=== PATIENT | male | born 1950 | race Caucasian/White ===

== ENCOUNTER 2021-12-14 15:33 | Emergency (ER) | payer MEDICARE ==
--- NOTE | 2021-12-14 16:12 | ERPHSYRPT ---
- History of Present Illness Time Seen by Provider: 12/14/21 16:00 Source: patient, family Exam Limitations: no limitations Patient Subjective Stated Complaint: pt states yesterday evening he was unable to speak to and brother for 15-30 seconds Triage Nursing Assessment: pt states yesterday evening he was unable to speak to and brother for 15-30 seconds - pt able to communicate without difficulty at this time Physician History: This is a 71-year-old white male patient of Dr. Osborne who was visiting his brother yesterday in [place] when he had sudden onset of aphasia that lasted approximately 15 to 20 seconds then resolved completely. Patient took 2 325 mg aspirin at that time and then repeated the dose this morning at the instructions of his physician brother. Patient denies chest pain. He denies headache. He denies shortness of breath. He contacted Dr. Cardoza's office this morning and he was instructed to come to the emergency department as soon as he arrived [facility] the [facility]. Patient has a history of hypertension, elevated cholesterol, gout and gastroesophageal reflux disease. Upon arrival into the emergency department he has a blood pressure of approximately 153/113. He does not have a headache. He has no visual changes. He is completely asymptomatic. Timing/Duration: yesterday, resolved prior to arrival Severity: mild Character of Deficits: unable to speak (Yesterday for approximately 15 to 20 seconds) Deficits: no difficulties Baseline/Normal Cognition: alert oriented x 3 Current Cognition: alert oriented x 3 Baseline Gait: walks w/o assistance Associated Symptoms: denies symptoms Allergies/Adverse Reactions: No Known Drug Allergies Allergy (Unverified 12/14/21 15:53) Home Medications: Allopurinol 100 mg [Zyloprim 100 mg] 100 mg PO DAILY 12/14/21 [History] Amlodipine Besylate 5 mg [Norvasc 5 mg] 2.5 mg PO HS 12/14/21 [History] Aspirin EC 81 mg [Ecotrin 81 mg] 81 mg PO DAILY 12/14/21 [History] Hydrochlorothiazide 25 mg [hydroDIURIL 25 MG] 0.5 tab PO DAILY 12/14/21 [History] Hydroxyzine HCl 25 mg [Atarax 25 mg] 25 mg PO HS 12/14/21 [History] Losartan Potassium 50 mg [Cozaar 50 MG] 50 mg PO BID 12/14/21 [History] Mecobalamin [B12 Active] 500 mcg PO DAILY 12/14/21 [History] Metoprolol Tartrate 50 mg [Lopressor 50 MG] 75 mg PO BID 12/14/21 [History] Omeprazole 20 mg PO HS 12/14/21 [History] Simvastatin 20Mg [Zocor 20Mg] 40 mg PO DAILY 12/14/21 [History] Hx Tetanus, Diphtheria Vaccination/Date Given: Yes Hx Influenza Vaccination/Date Given: Yes Hx Pneumococcal Vaccination/Date Given: Yes Immunizations Up to Date: Yes Travel Risk - International Travel Have you traveled outside of the country in past 3 weeks: No - Coronavirus Screening Are you exhibiting any of the following symptoms?: No Close contact with a COVID-19 positive Pt in past 14-21 Days: No - Vaccine Status Have you recieved a Covid-19 vaccination: Yes [employer]: [employer] - Vaccination Dates Date of 2cond Vaccination (if applicable): 07/2020 Comment: 09/11 - Review of Systems Constitutional: No Symptoms Eyes: No Symptoms Ears, Nose, & Throat: No Symptoms Respiratory: No Symptoms Cardiac: No Symptoms Abdominal/Gastrointestinal: No Symptoms Genitourinary Symptoms: No Symptoms Musculoskeletal: No Symptoms Skin: No Symptoms Neurological: No Symptoms Psychological: No Symptoms Endocrine: No Symptoms Hematologic/Lymphatic: No Symptoms Immunological/Allergic: No Symptoms All Other Systems: Reviewed and Negative - Past Medical History Pertinent Past Medical History: Yes Cardiac History: High Cholesterol, Hypertension GI Medical History: GERD Psycho-Social History: Anxiety - Past Surgical History Past Surgical History: Yes Neuro Surgical History: No Pertinent History Cardiac: No Pertinent History Respiratory: No Pertinent History Gastrointestinal: Hernia Repair Male Surgical History: Prostate Surgery, Vasectomy Other Surgical History: MULTIPLE BACK SURGERIES, NARESH SHOULDER REPAIR, 2 HERNIA REPAIR, HX PROSTATE CANCER- PROSTATE REMOVAL, CARPAL TUNNEL SURGERY, VASECTOMY - Social History Smoking Status: Current every day smoker Exposure to second hand smoke: Yes Drug Use: none Patient Lives Alone: No - Nursing Vital Signs Nursing Vital Signs: Initial Vital Signs Pulse Rate 77 12/14/21 15:42 Respiratory Rate 20 12/14/21 15:42 Blood Pressure 157/113 12/14/21 15:42 O2 Sat by Pulse Oximetry 96 12/14/21 15:42 Pain Scale Pain Intensity 0 - Leonor Coma Scale Best Eye Response (Leonor): (4) open spontaneously Best Verbal Response ([place]): (5) oriented Best Motor Response ([place]): (6) obeys commands Leonor Total: 15 - Physical Exam General Appearance: no apparent distress, alert, anxiety Eye Exam: bilateral eye: normal inspection, PERRL, EOMI Ears, Nose, Throat Exam: normal ENT inspection, moist mucous membranes Neck Exam: normal inspection, non-tender, supple, full range of motion Respiratory: normal breath sounds, lungs clear, airway intact, No chest tenderness, No respiratory distress Cardiovascular: regular rate/rhythm, normal heart sounds, normal peripheral pulses Gastrointestinal: soft, normal bowel sounds, No tenderness Rectal Exam: not done Back Exam: normal inspection, normal range of motion, No CVA tenderness, No vertebral tenderness Extremity Exam: normal inspection, normal range of motion, pelvis stable Mental Status: alert, oriented x 3, cooperative signs cleaner Exam: normal hearing, normal speech, PERRL, tongue midline Coordination/Gait: normal finger to nose, normal gait, normal cerebellar f unction Motor/Sensory: no motor deficit, no sensory deficit, no pronator drift Skin Exam: normal color, warm, dry SpO2 Interpretation: normal SpO2: 96 O2 Delivery: Room Air - Course Nursing assessment & vital signs reviewed: Yes EKG Interpreted by Me: RATE (70), Sinus Rhythm, NORMAL AXIS, NORMAL INTERVALS, NORMAL QRS, NORMAL ST-T, Other (No acute ischemic changes. No comparison EKG available.) Ordered Tests: Active Orders 24 hr Category Date Time Status EKG-ER Only STAT Care 12/14/21 16:12 Active IV Insertion STAT Care 12/14/21 16:12 Active NPO (ED) STAT Care 12/14/21 16:13 Active Consult Neurology ROUTINE Cons 12/14/21 16:34 Completed Tele-Health Consult ROUTINE Cons 12/14/21 22:32 Active HEAD WITHOUT CONTRAST [CT] Stat Exams 12/14/21 16:13 Completed CBC W DIFF Stat Lab 12/14/21 16:00 Completed CMP Stat Lab 12/14/21 16:00 Completed ETHYL ALCOHOL Stat Lab 12/14/21 16:00 Completed Medication Summary Discontinued Medications Generic Name Dose Route Start Last Admin Trade Name Freq PRN Reason Stop Dose Admin Clopidogrel Bisulfate 75 mg 12/14/21 22:37 Clopidogrel Bisulfate 75 Mg Tablet PO 12/14/21 22:38 STAT ONE Lab/Rad Data: Laboratory Result Diagrams 12/14/21 16:00 12/14/21 16:00 Laboratory Results 12/14/21 12/14/21 12/14/21 Range/Units 16:00 16:00 16:00 WBC 5.7 (4.0-10.5) x10^3/uL RBC 4.39 (4.1-5.6) x10^6/uL Hgb 15.0 (12.5-18.0) g/dL Hct 42.8 (42-50) % MCV 97.5 (78-100) fL MCH 34.2 H (26-32) pg MCHC 35.0 (32-36) g/dL RDW 11.8 (11.5-14.0) % Plt Count 208 (150-450) x10^3/uL MPV 9.4 (7.5-11.0) fL Gran % 62.3 (36.0-66.0) % Immature Gran % (Auto) 1.1 H (0.00-0.4) % Nucleat RBC Rel Count 0.0 (0.00-0.1) % Eos # (Auto) 0.17 (0-0.5) x10^3/uL Immature Gran # (Auto) 0.06 H (0.00-0.03) x10^3u/L Absolute Lymphs (auto) 1.23 (1.0-4.6) x10^3/uL Absolute Monos (auto) 0.62 (0.0-1.3) x10^3/uL Absolute Nucleated RBC 0.00 (0.00-0.01) x10^3u/L Lymphocytes % 21.6 L (24.0-44.0) % Monocytes % 10.9 (0.0-12.0) % Eosinophils % 3.0 (0.00-5.0) % Basophils % 1.1 (0.0-0.4) % Absolute Granulocytes 3.56 (1.4-6.9) x10^3/uL Basophils # 0.06 (0-0.4) x10^3/uL Sodium 131 L (137-145) mmol/L Potassium 3.9 (3.5-5.1) mmol/L Chloride 99 (98-107) mmol/L Carbon Dioxide 22 (22-30) mmol/L Anion Gap 13.8 (5-15) MEQ/L BUN 11 (9-20) mg/dL Creatinine 0.75 (0.66-1.25) mg/dL Estimated GFR > 60.0 ML/MIN Glucose 117 H (74-106) mg/dL Calcium 9.5 (8.4-10.2) mg/dL Total Bilirubin 0.80 (0.2-1.3) mg/dL AST 76 H (17-59) U/L ALT 77 H (0-50) U/L Alkaline Phosphatase 66 (38-126) U/L Serum Total Protein 6.9 (6.3-8.2) g/dL Albumin 4.1 (3.5-5.0) g/dL Ethyl Alcohol < 10 (0-10) mg/dL - Progress Progress: improved Progress Note: 12/14/21 16:36 Dr. Cardoza, the patient's primary care provider, requested that we obtain a tele-neurology consultation. 12/14/21 19:08 CT scan of head without contrast shows no acute intracranial abnormalities. 12/14/21 19:38 Medical decision making: We are waiting teleneurology consultation for outpatient recommendations of this patient. This is what Dr. Cardoza is wanting to obtain from the neurologist 12/14/21 22:38 Medical decision making: The patient was evaluated by Dr. Reid, neurologist. After evaluating this patient and the results of the CAT scan of the head, she recommends a standard TIA work-up. I spoke with Dr. Cardoza and the patient. They both have decided the patient will have a work-up as an ou tpatient to include MRI, echocardiogram, bilateral carotid Dopplers and place the patient on Plavix. The neurologist stated that this is okay if the patient does not want to be admitted into the hospital. Dr. Cardoza states that the patient is to call her office tomorrow morning. Her office will make arrangements for each of those tests. She wanted me to place the patient on Plavix 75 mg orally now and then the patient will receive a prescription from Dr. Cardoza for further Plavix medication/prescription. Discussed with : Lee Counseled pt/family regarding: lab results, diagnosis, need for follow-up, rad results - Departure Departure Disposition: Home Clinical Impression: TIA (transient ischemic attack) Condition: Stable Critical Care Time: No Referrals: GABINO OSBORNE, [Primary Care Provider] - Follow up/PCP as directed Additional Instructions: Take all your medications as prescribed. Follow-up with Dr. Cardoza in her office tomorrow morning to make arrangements for outpatient testing and further medications as indicated.
[2021-12-14 16:45] LABS: Absolute Neutrophil Ct (ANC) 3.56 x10^3/uL (1.4-6.9); Basophil (Absolute #) 0.06 x10^3/uL (0-0.4); Eosinophil (Absolute #) 0.17 x10^3/uL (0-0.5); Hematocrit 42.8 % (42-50); Lymphocyte (Absolute #) 1.23 x10^3/uL (1.0-4.6); Lymphocytes % 21.6 % (24.0-44.0); Mean Cell Volume 97.5 fL (78-100); Mean Corpuscular Hemoglobin 34.2 pg (26-32); Mean Platelet Volume 9.4 fL (7.5-11.0); Monocyte (Absolute #) 0.62 x10^3/uL (0.0-1.3); Monocytes % 10.9 % (0.0-12.0); Neutrophil % 62.3 % (36.0-66.0); Platelet Count 208 x10^3/uL (150-450); Red Blood Count 4.39 x10^6/uL (4.1-5.6); Red Cell Distribution Width 11.8 % (11.5-14.0); White Blood Count 5.7 x10^3/uL (4.0-10.5)
[2021-12-14 16:58] LABS: ALBUMIN 4.1 g/dL (3.5-5.0); ALKALINE PHOSPHATASE 66 U/L (38-126); ANION GAP 13.8 MEQ/L (5-15); BLOOD UREA NITROGEN 11 mg/dL (9-20); CHLORIDE 99 mmol/L (98-107); Calcium 9.5 mg/dL (8.4-10.2); Carbon Dioxide 22 mmol/L (22-30); Creatinine 1 0.75 mg/dL (0.66-1.25); EST GLOMERULAR FILTRATION RATE > 60.0 ML/MIN; Glucose 117 mg/dL (74-106); Potassium 3.9 mmol/L (3.5-5.1); SGOT/AST 76 U/L (17-59); SGPT/ALT 77 U/L (0-50); SODIUM 131 mmol/L (137-145); Total Protein 6.9 g/dL (6.3-8.2)
--- NOTE | 2021-12-14 19:29 | XRAY ---
Exam: CT of the head without IV contrast from 12/14/2021. CTDI: 53.92 mGy Comparison: None. Indication: 71-year-old male with possible TIA yesterday; aphasia for about 15 seconds; history of hypertension. Technique: Non-IV contrast axial images were obtained through the brain. Reconstructed coronal and sagittal images were created and reviewed. Findings: The ventricles, sylvian fissures, and cortical sulci are mildly prominent in a symmetric manner suggesting an aging brain/mild atrophy. No acute intracranial bleed or abnormal extra-axial fluid collection is seen. No focal mass effect or midline shift is seen. Subtle subcortical white matter changes are seen, likely due to mild chronic small vessel ischemic white matter disease. A discrete low attenuation infarct within a major cerebral or cerebellar artery distribution is not seen. There is minimal mucosal thickening versus a tiny retention cyst or polyp at the anterior lateral margin of the right maxillary sinus on image #3. No air-fluid levels are seen. I do see some soft tissue density within posterior ethmoid sinus on the right. There is some minimal mucosal thickening at the posterior margin of the sphenoid sinus. Minimal mucosal thickening is seen at the lateral margin of the left ethmoid sinus. I also note minimal mucosal thickening within the inferior aspect of the frontal sinus just to the left of midline. There is some mild deviation of the nasal septum toward the right. The mastoid air cells are clear without effusion. The middle ear cavities appear unremarkable. No fracture or other focal bone lesion of the calvarium is seen. Impression: 1. No acute intracranial bleed or other acute intracranial process is seen. 2. Findings consistent with mild diffuse aging/atrophy of the brain. I also note some subtle subcortical white changes, likely reflecting chronic small vessel ischemic white matter disease. A discrete low attenuation infarct is not seen. 3. Mild chronic sinus disease/sinusitis, as discussed above. No air-fluid levels are seen.
[2021-12-14] MEDS ORDERED: PLAVIX Tablet PO ONE (22:37)
[2021-12-14] MEDS ORDERED: PLAVIX Tablet ONE (22:39)
[2021-12-14 22:57] VITALS: BP 158/109; PULSE 78; O2SAT 95
== END 2021-12-14 22:58 | disposition home or self-care (01) ==
LOC: ED 15:33
DX: G45.9 Transient cerebral ischemic attack, unspecified (principal); R47.01 Aphasia; I10 Essential (primary) hypertension; E78.5 Hyperlipidemia, unspecified; Z72.0 Tobacco use; Z79.899 Other long term (current) drug therapy; Z79.02 Long term (current) use of antithrombotics/antiplatelets
CPT/HCPCS: 36000; 36415; 70450; 80053; 85025; 93005; 93225; 99284; G0480; Q3014; 80307; A9270-GY

== ENCOUNTER 2022-10-05 08:10 | Day surgery (SDC) | payer MEDICARE ==
[~2022-10-05 08:10] MED LIST: Ak-Dilate OPHTHALMIC*** 1.065 ML, Cyclogyl 1% OPHTH SOL 1.065 ML, GATIFLOXACIN 0.5% OPH... OP ONE; BETADINE 5% OPHTHALMIC 30 ML OP ONE; Lactated Ringers 1,000 ML IV SCH; NON-FORMULARY ITEM OP ONE; TETRACAINE 0.5% STERI-UNIT SOL OP ONE; cefUROXime sodium 0.005 GM in Sodium Chloride Flush 30 ML*** 0.5 ML IJ ONE
[2022-10-05] MEDS ORDERED: Lactated Ringers 1,000 ML IV ONE (08:50)
[2022-10-05] MEDS ORDERED: Zofran 4 MG/2 ML VIAL IV PRN (09:00)
[2022-10-05] MEDS ORDERED: ACETAZOLAMIDE 250 MG TABLET PO ONE (09:00)
[2022-10-05] MEDS ORDERED: Versed 2 MG/2 ML Injection ONE (11:45)
[2022-10-05] MEDS ORDERED: DIPRIVAN 200 MG/20 ML IV ONE (11:45)
[2022-10-05] MEDS ORDERED: Xylocaine-Mpf 2% 5 Ml Vial ONE (11:45)
[2022-10-05] MEDS ORDERED: SUBLIMAZE 100 MCG/2 ML ONE (11:45)
[2022-10-05 12:37] VITALS: O2SAT 95
[2022-10-05 12:50] VITALS: BP 130/87; PULSE 65
== END 2022-10-05 13:04 | disposition home or self-care (01) ==
LOC: SDC 08:10
PROVIDERS: ATTEND Ophthalmology
DX: H25.811 Combined forms of age-related cataract, right eye (principal)
CPT/HCPCS: C1780; J2250; J2704; J3010; A9270-GY

== ENCOUNTER 2023-01-12 10:16 | Day surgery (SDC) | payer MEDICARE ==
[2023-01-12] MEDS ORDERED: BUPIVACAINE 0.5% VIAL IJ ONE (10:17)
[2023-01-12] MEDS ORDERED: Depo-Medrol 40 MG/ML IM ONE (10:17)
[2023-01-12] MEDS ORDERED: LIDOCAINE HCL 1% 50 MG/5 ML VL PF IJ ONE (10:17)
--- NOTE | 2023-01-12 17:29 | XRAY ---
Indication: Left knee injection. Intraoperative fluoroscopy provided for 7 seconds. Single digital spot images submitted for interpretation demonstrates needle tip projecting over the left femur intercondylar notch. Small amount of contrast injected for needle tip placement. Correlate with intraoperative findings/report.
--- NOTE | 2023-01-13 08:48 | XRAY ---
7 seconds of fluoroscopy was used in surgery for a left intra-articular knee injection.
== END 2023-01-12 16:55 | disposition home or self-care (01) ==
LOC: SDC-PAIN 10:16
PROVIDERS: ATTEND Psychiatry & Neurology Pain Medicine
DX: M17.12 Unilateral primary osteoarthritis, left knee (principal)
CPT/HCPCS: 20610; 73560; 77002; J1030; J2001; Q9966

== ENCOUNTER 2023-05-10 07:44 | Day surgery (SDC) | payer MEDICARE ==
[2023-05-10] MEDS ORDERED: Epinephrine Preservative Free 1 MG/ML IJ ONE (07:45)
[2023-05-10] MEDS ORDERED: BETADINE 5% OPHTHALMIC 30 ML OP ONE (08:00)
[2023-05-10] MEDS ORDERED: TETRACAINE 0.5% STERI-UNIT SOL OP ONE ×2 (08:00)
[2023-05-10] MEDS ORDERED: Lactated Ringers 1,000 ML IV SCH (08:00)
[2023-05-10] MEDS ORDERED: NON-FORMULARY ITEM OP ONE (08:00)
[2023-05-10] MEDS ORDERED: Ak-Dilate OPHTHALMIC*** 1.065 ML, Cyclogyl 1% OPHTH SOL 1.065 ML, GATIFLOXACIN 0.5% OPH... OP ONE ×4 (08:00)
[2023-05-10] MEDS ORDERED: cefUROXime sodium 0.005 GM in Sodium Chloride Flush 30 ML*** 0.5 ML IJ ONE (08:00)
[2023-05-10] MEDS ORDERED: Lactated Ringers 1,000 ML IV ONE (08:23)
[2023-05-10 08:26] VITALS: RESP 16
[2023-05-10] MEDS ORDERED: Zofran 4 MG/2 ML VIAL IV PRN (09:00)
[2023-05-10] MEDS ORDERED: ACETAZOLAMIDE 250 MG TABLET PO ONE (09:00)
[2023-05-10] MEDS ORDERED: DIPRIVAN 200 MG/20 ML IV ONE (09:47)
[2023-05-10] MEDS ORDERED: Versed 2 MG/2 ML Injection ONE (09:47)
[2023-05-10] MEDS ORDERED: SUBLIMAZE 100 MCG/2 ML ONE (09:48)
[2023-05-10 10:10] VITALS: TEMP 97.9
[2023-05-10 10:30] VITALS: BP 128/90; PULSE 69; O2SAT 94
== END 2023-05-10 10:36 | disposition home or self-care (01) ==
LOC: SDC 07:44
PROVIDERS: ATTEND Ophthalmology
DX: H25.812 Combined forms of age-related cataract, left eye (principal)
CPT/HCPCS: 99100; C1780; J0171; J2250; J2704; J3010; A9270-GY

== ENCOUNTER 2023-05-30 06:00 | Day surgery (SDC) | payer MEDICARE ==
[2023-05-30] MEDS ORDERED: Lactated Ringers 1,000 ML IV SCH (06:30)
[2023-05-30 06:37] VITALS: RESP 16
[2023-05-30] MEDS ORDERED: Xylocaine-Mpf 2% 5 Ml Vial ONE (07:53)
[2023-05-30] MEDS ORDERED: DIPRIVAN 200 MG/20 ML IV ONE ×2 (07:53→08:15)
[2023-05-30] MEDS ORDERED: ROBINUL ONE (08:04)
[2023-05-30] MEDS ORDERED: Ephedrine Sulfate 50 MG/ML ONE (08:09)
--- NOTE | 2023-05-30 08:38 | OP ---
SURGERY DATE/TIME: 05/30/2023 0802 PREOPERATIVE DIAGNOSIS: Change in bowel habits and screening colon exam. POSTOPERATIVE DIAGNOSES: 1) Small transverse colon polyp. 2) Sigmoid diverticulosis. PROCEDURE: Colonoscopy with cold forceps biopsy. SURGEON: Dr. Christopher. ANESTHESIA: Medications given by anesthesia department. HISTORY: The patient is a 73-year-old white male patient who reports over the past eight weeks he has had trouble with his bowel movements at times being liquid and explosive. He has not had any polyps previously. He did have a colonoscopy over ten years ago. The patient is felt the need to have endoscopic evaluation. He was described the risks of the procedure including the risk of perforation, phlebitis, untoward reaction to medication, bleeding and missed lesions. The patient verbalized his understanding and desired to have the procedure performed. DESCRIPTION OF PROCEDURE: The patient was given the medications by the anesthesia department. He had continuous pulse oximetry, ECG monitoring and intermittent blood pressure monitoring during the examination. He was placed in the left lateral decubitus position. A digital rectal examination was performed and revealed external hemorrhoidal tags, normal anal sphincter tone and surgically absent prostate. No masses were felt. The flexible Olympus pediatric colonoscope was used to intubate the rectum. A view of the colon was developed sequentially to the cecum. Upon insertion and withdrawal was noted moderate sigmoid diverticulosis and a small transverse colon polyp which was biopsied using passes of cold forceps biopsy destroying the lesion. No other mucosal lesions were encountered. The scope was removed from the patient who tolerated the procedure well and was sent back to OP recovery in good condition. The prep was noted to be fair.
[2023-05-30 08:54] VITALS: TEMP 97.7
[2023-05-30 09:17] VITALS: BP 124/95; PULSE 92; O2SAT 92
== END 2023-05-30 09:15 | disposition home or self-care (01) ==
LOC: SDC 06:00
PROVIDERS: ATTEND Family Medicine
DX: Z12.11 Encounter for screening for malignant neoplasm of colon (principal); R19.4 Change in bowel habit; K57.30 Diverticulosis of large intestine without perforation or abscess without bleeding; K64.4 Residual hemorrhoidal skin tags; D12.3 Benign neoplasm of transverse colon
CPT/HCPCS: 99100; J2704

== ENCOUNTER 2025-03-23 14:33 | Emergency (ER) | payer MEDICARE ==
[2025-03-23 14:52] VITALS: TEMP 97
[2025-03-23] MEDS ORDERED: XYLOCAINE 1% HCL 20 ML MDV ONE (15:06)
--- NOTE | 2025-03-23 15:07 | ERPHSYRPT ---
- History of Present Illness Time Seen by Provider: 03/23/25 14:50 Source: patient Exam Limitations: no limitations Patient Subjective Stated Complaint: Pt. states, "I stepped on some uneven concrete and tripped. I hit my head and cut my head open above by rt. eyebrow." Triage Nursing Assessment: Pt. ambulated to room without difficulty, A&O x3, Skin P/W./D, laceration above right eyebrow with controlled bleeding. REsp. even unlabored. Denies any LOC. No Neuro defecits. Physician History: This is a 74-year-old white male patient arrives by private vehicle and is a patient of nurse practitioner Wally. Patient was walking on uneven concrete then tripped and fell onto his face from a standing position. Patient did not lose consciousness. Patient does take Eliquis daily. He has a laceration above his right eyebrow. Patient refuses a tetanus injection. Patient has a history of hypertension, hyperlipidemia, gout, and again, is on Eliquis Occurred: just prior to arrival Reason for Fall: tripped (On uneven concrete slabs), fell from standing pos Injuries/Pain Location: head Loss of Consciousness: no loss of consciousness Quality: aching Severity of Pain-Max: mild Severity of Pain-Current: mild Modifying Factors: Improves With: nothing Associated Symptoms (Fall): denies symptoms Allergies/Adverse Reactions: No Known Drug Allergies Allergy (Verified 05/09/23 15:14) Home Medications: Allopurinol 100 mg [Zyloprim 100 mg] 100 mg PO DAILY 12/14/21 [History] Amlodipine Besylate 5 mg [Norvasc 5 mg] 2.5 mg PO BID 12/14/21 [History] Hydrochlorothiazide 25 mg [hydroDIURIL 25 MG] 0.5 tab PO UD 12/14/21 [History] Hydroxyzine HCl 25 mg [Atarax 25 mg] 25 mg PO HS 12/14/21 [History] Apixaban [Eliquis] 5 mg PO DAILY 09/21/22 [History] Atorvastatin Calcium 80 mg PO DAILY 05/03/23 [History] Cholecalciferol (Vitamin D3) [Vitamin D3] 50 mcg PO DAILY 05/09/23 [History] Cyanocobalamin (Vitamin B-12) [Vitamin B-12] 1,000 mcg PO DAILY 05/09/23 [History] Losartan Potassium 50 mg PO BID 05/09/23 [History] Metoprolol Tartrate 50 mg [Lopressor 50 MG] 50 mg PO TID 05/09/23 [History] Hx Tetanus, Diphtheria Vaccination/Date Given: Yes Hx Influenza Vaccination/Date Given: Yes Hx Pneumococcal Vaccination/Date Given: Yes Travel Risk - International Travel Have you traveled outside of the country in past 3 weeks: No - Emerging Infectious Disease Are you exhibiting symptoms associated with any current EIDs: No - Review of Systems Constitutional: No Symptoms Eyes: No Symptoms Ears, Nose, & Throat: No Symptoms Respiratory: No Symptoms Cardiac: No Symptoms Abdominal/Gastrointestinal: No Symptoms Genitourinary Symptoms: No Symptoms Musculoskeletal: No Symptoms Skin: Other (2.5 cm skin laceration above the right eyebrow) Neurological: No Symptoms Psychological: No Symptoms Endocrine: No Symptoms Hematologic/Lymphatic: No Symptoms Immunological/Allergic: No Symptoms All Other Systems: Reviewed and Negative - Past Medical History Pertinent Past Medical History: Yes Neurological History: TIA ENT History: No Pertinent History Cardiac History: High Cholesterol, Hypertension Respiratory History: COPD Endocrine Medical History: No Pertinent History Musculoskeletal History: Arthritis, Fractures GI Medical History: GERD History: No Pertinent History Psycho-Social History: No Pertinent History Male Reproductive Disorders: Prostate Cancer, Prostate Problems Other Medical History: L5 AND S1 surgery; L3/L4/L5 disc bulging; L5 and S1 degeneration, Bilateral shoulder RTC repairs, hernia repairs, prostatectomy - Past Surgical History Past Surgical History: Yes Neuro Surgical History: No Pertinent History Cardiac: No Pertinent History Respiratory: No Pertinent History Gastrointestinal: Hernia Repair Genitourinary: No Pertinent History Musculoskeletal: Other Male Surgical History: Prostate Surgery, Vasectomy Other Surgical History: MULTIPLE BACK SURGERIES, NARESH SHOULDER REPAIR, 2 HERNIA REPAIR, HX PROSTATE CANCER- PROSTATE REMOVAL, CARPAL TUNNEL SURGERY, VASECTOMY,a nterior cervicax disc and fusion,L5-S1 micro lumbar discetomy x 3. , - Social History Smoking Status: Former smoker Exposure to second hand smoke: No Drug Use: none - Social Determinants of Health Will the patient participate in the screening: Declined to provide - Nursing Vital Signs Nursing Vital Signs: Initial Vital Signs Temperature 97.0 F 11/01/25 14:33 Pulse Rate 71 03/23/25 14:33 Respiratory Rate 18 03/23/25 14:33 Blood Pressure 146/98 03/23/25 14:33 O2 Sat by Pulse Oximetry 98 03/23/25 14:33 Pain Scale Pain Intensity 1 - Firth Coma Score Best Eye Response (Leonor): (4) open spontaneously Best Verbal Response (Firth): (5) oriented Best Motor Response (Firth): (6) obeys commands Leonor Total: 15 - Physical Exam General Appearance: no apparent distress, alert, thin Head Injury: lacerations (2.5 cm, nonbleeding transversely oriented skin laceration above the right eyebrow. No foreign body), swelling, tenderness Eye Exam: PERRL/EOMI, eyes nml inspection ENT Exam: airway nml, nml ext.inspection Neck Exam: supple, trachea midline, full range of motion, normal alignment, No paraspinous muscle tender, No pain on movement of neck, No stiff neck, No tenderness Respiratory/Chest Exam: No chest tenderness, No respiratory distress Gastrointestinal Exam: No tenderness Rectal Exam: not done Back Exam: normal inspection, normal range of motion, No CVA tenderness, No vertebral tenderness Extremity Exam: normal inspection, normal range of motion, pelvis stable Neurologic Exam: alert, oriented x 3, cooperative, pilot highway patrol II-XII nml as tested, nml cerebellar function, nml station & gait, sensation nml Skin Exam: laceration (2.5 cm, nonbleeding, transversely oriented, skin laceration without foreign body, above the right eyebrow) SpO2 Interpretation: normal SpO2: 98 O2 Delivery: Room Air Procedures - Laceration/Wound Repair Right Head Time of Procedure: 15:40 Wound Location: Right, face (Above right eyebrow) Wound Length (cm): 2.5 Wound's Depth, Shape: superficial, linear, into subcut Wound Explored: clean (Wound explored to the base no foreign body noted. Exploration performed in bloodless field) Irrigated: Yes Hibiclens Prep: Yes Anesthesia: 1% Lidocaine Volume Anesthetic (ccs): 5 Wound Repaired With: sutures Suture Size/Type: 4-0, nylon Number of Sutures: 4 Layer Closure?: No Progress: 03/23/25 16:16 No complications. Patient tolerated the procedure well. Area was cleaned dried and a thin layer bacitracin ointment was applied. There were no complications - Course Nursing assessment & vital signs reviewed: Yes Ordered Tests: Active Orders 24 hr Category Date Time Status Wound Care STAT Care 03/23/25 15:07 Active HEAD WITHOUT CONTRAST [CT] Stat Exams 03/23/25 15:40 Completed Medication Summary Discontinued Medications Generic Name Dose Route Start Last Admin Trade Name Lolis PRN Reason Stop Dose Admin Bacitracin Zinc 0.9 each 03/23/25 15:08 03/23/25 16:55 Bacitracin Packet 1 Each Pckt TP 03/23/25 15:09 1 each STAT ONE Administration Bacitracin Zinc Confirm 03/23/25 16:52 Bacitracin Packet 1 Each Pckt Administered 03/23/25 16:53 Dose 1 each .ROUTE .STK-MED ONE Lidocaine HCl Confirm 03/23/25 15:06 Lidocaine Hcl 1% 20 Ml Mdv 20 Ml Ml Administered 03/23/25 15:07 Dose 10 ml .ROUTE .STK-MED ONE Lidocaine HCl 10 ml 03/23/25 15:07 03/23/25 16:55 Lidocaine Hcl 1% 20 Ml Mdv 20 Ml Ml IJ 03/23/25 15:08 10 ml STAT ONE Administration - Progress Progress: improved, re-examined Progress Note: 03/23/25 16:18 My medical decision making and the assignment of moderate complexity of this patient's medical issue today is based on review of the patient's past medical history, reviewed patient's medication list, reviewed patient drug allergy list, history present illness and physical findings on examination. The workup in this patient includes CT scan of the head without contrast. In addition we will we will repair the above the right eyebrow skin lesion. Patient refusing tetanus injection Differential diagnosis includes but is not limited to skin laceration, skin abrasion, skull fracture, acute intracranial abnormality. 03/23/25 17:[address] scan of the head without contrast was interpreted by the radiologist and I reviewed the impression. The impression states right periorbital hematoma. No fracture or intracranial hemorrhage. There is chronic lacunar infarct in the left capsular ganglionic region and left insular cortex. There is microangiopathic ischemic changes. There are age-related cerebral involutional changes Counseled pt/family regarding: diagnosis, need for follow-up, rad results Medical Desision Making - Diagnostic Testing Diagnostic test were ordered, analyzed, and reviewed by me: Yes Radiological Interpretation: Reviewed by me, Teleradiologist Report - Risk of complications Low Risk: Low risk of morbidity from additional dx testing or treatment - Departure Departure Disposition: Home Clinical Impression: Facial laceration, Fall with significant injury Condition: Stable Critical Care Time: No Referrals: TRESA LLOYD, [employer] [Primary Care Provider, [facility]] - Follow up/PCP as directed Additional Instructions: Stop your Eliquis. May restart on the evening of 03/24/2025. Keep the skin laceration repair site dry until the evening of 03/24/2025. At that time you may rinse the site off with soapy water. Blot dry use a general studies program chair. Apply a thin layer of antibiotic ointment of choice to the site. Each day thereafter, may rinse the site off with soapy water and blot dry. After each drying, apply thin layer of antibiotic ointment of choice. Use Tylenol for pain control. Apply ice to the area, not directly on the skin, 3 times a day for the next 3 days. Suture removal in 7 days.
[2025-03-23] MEDS ORDERED: BACIGUENT PACKET ONE (16:52)
[2025-03-23] MEDS: BACIGUENT PACKET TP ONE (16:55)
[2025-03-23] MEDS: XYLOCAINE 1% HCL 20 ML MDV IJ ONE (16:55)
--- NOTE | 2025-03-23 17:00 | XRAY ---
CLINICAL HISTORY: Fall injury COMPARISON: No previous study is available for comparison. TECHNIQUE: Axial non-contrast CT scan of the brain was performed from the skull base to the high parietal region. One of the following dose reduction techniques was utilized for this exam: automated exposure control, adjustment of the mA and/or kV according to patient size, and use of iterative reconstruction. FINDINGS: Brain Parenchyma: There is normal attenuation of the cerebral hemispheres, cerebellum, and brainstem. There is no evidence of acute infarct, hemorrhage, or mass effect. Ill-defined hypodensities are noted in the bilateral frontoparietal and periventricular deep white matter. A tiny hypodensity is noted in the left capsuloganglionic region and insular cortex. Subtle hyperdensity in the bilateral MCA may be due to hematocrit, beam hardening, or technical factors. No evidence of acute infarct is noted. Correlation with clinical findings is recommended. Ventricular System: The intra- and extracerebral CSF spaces are prominent. There is no evidence of subarachnoid hemorrhage or extra-axial fluid collections. Cerebellum and Brainstem: No masses, lesions, or areas of abnormal density are identified. Orbits: There is normal appearance of the globes, optic nerves, and extraocular muscles. There is no evidence of orbital masses or abnormal density. Sinuses: Mucosal thickening is present in the bilateral ethmoid sinuses. Mastoid Air Cells: The mastoid air cells are clear. There is no evidence of mastoiditis. Skull: The skull demonstrates normal morphology. A right periorbital soft tissue hematoma is noted. IMPRESSION: 1. A right periorbital soft tissue hematoma is noted. 2. No fracture or intracranial hemorrhage is noted. 3. Chronic lacunar infarct in the left capsuloganglionic region and left insular cortex. 4. Microangiopathic ischemic changes are present. 5. Age-related cerebral involutionary changes are present. Electronically Signed by: Thomas Johnson MD. (03/23/2025 16:59:37 EDT)
[2025-03-23 17:30] VITALS: BP 138/86; PULSE 64; RESP 16; O2SAT 99
== END 2025-03-23 17:29 | disposition home or self-care (01) ==
LOC: ED 14:33
DX: S01.81XA Laceration without foreign body of other part of head, initial encounter (principal); W01.0XXA Fall on same level from slipping, tripping and stumbling without subsequent striking against object, initial encounter; I10 Essential (primary) hypertension; Z79.899 Other long term (current) drug therapy

== ENCOUNTER 2025-04-08 08:12 | Day surgery (SDC) | payer MEDICARE ==
[2025-04-08] MEDS: NEURONTIN PO ONE (07:58)
[2025-04-08] MEDS: Lactated Ringers 1,000 ML IV SCH (07:59)
[2025-04-08] MEDS: Decadron 4 MG PO ONE (07:59)
[~2025-04-08 08:12] MED LIST changes: -Ak-Dilate OPHTHALMIC*** 1.065 ML, Cyclogyl 1% OPHTH SOL 1.065 ML, GATIFLOXACIN 0.5% OPH... OP ONE; -BETADINE 5% OPHTHALMIC 30 ML OP ONE; +CEFAZOLIN SODIUM ONE; +Decadron 4 MG ONE; +Lactated Ringers 1,000 ML IV ONE; -Lactated Ringers 1,000 ML IV SCH; +NEURONTIN ONE; -NON-FORMULARY ITEM OP ONE; -TETRACAINE 0.5% STERI-UNIT SOL OP ONE; -cefUROXime sodium 0.005 GM in Sodium Chloride Flush 30 ML*** 0.5 ML IJ ONE
[2025-04-08 08:24] VITALS: RESP 18
[2025-04-08] MEDS ORDERED: Lactated Ringers 1,000 ML IV ONE (08:41)
[2025-04-08] MEDS ORDERED: Sensorcaine 0.25% 10 ML ONE (08:41)
[2025-04-08] MEDS ORDERED: FLAGYL 500 MG IVPB 500 MG/100 ML BAG IV SCH (08:45)
[2025-04-08 08:55] LABS: Calcium 8.8 mg/dL (8.4-10.2); Carbon Dioxide 24.0 mmol/L (22-30); Creatinine 1 0.69 mg/dL (0.66-1.25); EST GLOMERULAR FILTRATION RATE 97.1 ML/MIN; Glucose 93.0 mg/dL (74-106)
[2025-04-08 09:00] LABS: Potassium 4.4 mmol/L (3.5-5.1)
[2025-04-08] MEDS ORDERED: propofoL IV ONE (10:29)
[2025-04-08] MEDS ORDERED: ROCURONIUM BROMIDE IV ONE (10:29)
[2025-04-08] MEDS ORDERED: Zofran 4 MG/2 ML VIAL ONE (10:29)
[2025-04-08] MEDS ORDERED: Xylocaine-Mpf 2% 5 Ml Vial ONE (10:31)
[2025-04-08] MEDS ORDERED: Versed 2 MG/2 ML Injection ONE (10:57)
[2025-04-08] MEDS ORDERED: SUBLIMAZE 100 MCG/2 ML ONE ×2 (11:04→12:21)
[2025-04-08] MEDS ORDERED: BRIDION 200MG/2ML IV ONE (11:30)
[2025-04-08 13:13] VITALS: BP 121/88; PULSE 71; TEMP 96.6; O2SAT 94
--- NOTE | 2025-04-09 12:03 | HP ---
HISTORY OF PRESENT ILLNESS: A 74-year-old, liver enzymes elevated. Ultrasound showed some small stones and sludge, question whether he is passing stones or sludge, question whether he had some chronic cholecystitis. He is not having much pain but interested in proceeding with cholecystectomy. PAST MEDICAL HISTORY: Reflux, hyperlipidemia, hypertension, gout, history of TIA in the past. HOME MEDICATIONS: Omeprazole, metoprolol, losartan, Eliquis, amlodipine, allopurinol. ALLERGIES: No known drug allergies. PAST SURGICAL HISTORY: He had vasectomy and tonsillectomy, bilateral inguinal hernia repair in the past, had radical prostatectomy, had back surgery, carpal tunnel release, cataract surgery in the past. SOCIAL HISTORY: Former smoker. Does drink some alcohol daily, denies abuse. FAMILY HISTORY: Negative in regard to this problem. REVIEW OF SYSTEMS: Twelve systems reviewed. No chest pain or palpitations. Other systems negative or noncontributory as above and per preadmission questionnaire. PHYSICAL EXAMINATION: GENERAL: Height 6 feet 3 inches. BMI 24.37. No acute distress. HEENT: Sclerae nonicteric. Extraocular movements intact. NECK: No JVD. CARDIOVASCULAR: Regular rate and rhythm. RESPIRATORY: Equal excursion, nonlabored breathing. ABDOMEN: Soft. No peritoneal sign. SKIN: Dry. EXTREMITIES: No cyanosis or edema. NEUROLOGIC: Alert, moving extremities symmetrically. PSYCHIATRIC: Appropriate mood and affect. IMPRESSION: Cholelithiasis and sludge, question whether he is passing some of the sludge, probable chronic cholecystitis. Feel he would benefit from cholecystectomy. He was shown the risk sheet and pamphlet in clinic. Explained the procedure in detail including, but not limited to, bleeding and infection; risk of trocar injury or hernia; risk of bowel, bladder, blood loss; risk of bile leak or bile duct injury, retained stone or sludge possibly requiring other procedure either open or ERCP; general risk of anesthesia, DVT, PE, pneumonia; constipation and/or loose stools, possibly chronic in nature; general risk of anesthesia, risk of sedation, but not limited to; possibility of no improvement in symptoms possibly requiring endoscopy or other studies or referrals. He understands and agrees with planned procedure. Will proceed with laparoscopic cholecystectomy and possible open as an outpatient.
--- NOTE | 2025-04-10 09:01 | OP ---
SURGERY DATE/TIME: 04/08/2025 [id number] PREOPERATIVE DIAGNOSIS: Acute exacerbation of chronic cholecystitis and cholelithiasis. POSTOPERATIVE DIAGNOSIS: Acute exacerbation of chronic cholecystitis and cholelithiasis. PROCEDURE: Laparoscopic cholecystectomy. SURGEON: Jatin Diane MD ANESTHESIA: General. ESTIMATED BLOOD LOSS: Minimal. INDICATIONS: As noted above. Risks and benefits explained in detail, not limited to. Consent was obtained. DESCRIPTION OF PROCEDURE AND FINDINGS: Patient was taken to the operating room. General anesthesia was induced. Abdomen was prepped and draped in usual sterile fashion. After official time-out and no disagreement in planned procedure, transverse incision made at supraumbilical area. Fascia grasped, pulled upward. Veress needle inserted. Tested with saline. Pneumoperitoneum accomplished from an opening pressure of 0 to 15. A 5 mm bladeless port and camera inserted without difficulty followed by two 5 mm right upper quadrant ports and an 11 mm epigastric port. Gallbladder was grasped and retracted over the edge of the liver. It had some chronic inflammation around it, was dissected posterolateral to anterior fashion. Slowly, carefully cystic duct/infundibular area was slowly and carefully skeletonized so that a critical view was obtained anteriorly and posteriorly. Once this was accomplished, cystic duct and cystic artery clipped x3 and divided in usual fashion. Gallbladder was slowly and carefully dissected free from its dense attachments, clipping an additional oozing side branch off the cystic artery or vein directly on the gallbladder wall as necessary. Just prior to releasing the final attachments to anterior edge of the liver, the liver bed reinspected. Clips were noted to be in place to cystic duct and cystic artery stumps. No sign of any active bleeding or bile leakage and felt there was no benefit of drain placement. Gallbladder was released from final attachments to the liver, placed in provided sac, pulled up into the epigastric wound which was spread slightly with a clamp. Gallbladder and bag pulled free and passed off. This fascial defect closed with puncture closure device with #1 Vicryl. Copious amount of irrigation accomplished lateral to the liver and subhepatic space irrigated clear. Liver bed reinspected. Clips noted to be in place to cystic duct and cystic artery stumps. No sign of any active bleeding or bile leakage and felt there was no benefit of drain placement. Wounds irrigated out. Again the 11 mm defect had been closed with #1 Vicryl. Wounds irrigated. Skin incision closed with 4-0 Vicryl. Marcaine 0.25% local injected along each skin incision and fascial defect. Patient tolerated the procedure well. There were no immediate complications.
== END 2025-04-08 13:28 | disposition home or self-care (01) ==
LOC: SDC 08:12
PROVIDERS: ATTEND Surgery
DX: K80.10 Calculus of gallbladder with chronic cholecystitis without obstruction (principal); I10 Essential (primary) hypertension